=== PATIENT | male | born 1995 | race Caucasian/White ===

== ENCOUNTER 2018-02-09 20:48 | Emergency (ER) ==
[2018-02-09 21:01] VITALS: BP 132/73; TEMP 98.6; BMI 29.2
[2018-02-09] MEDS ORDERED: LIDOCAINE HCL 1% SDV IM STA (21:10)
[2018-02-09] MEDS ORDERED: ROCEPHIN IM STA (21:10)
[2018-02-09] MEDS ORDERED: TORADOL IM STA (21:10)
[2018-02-09] MEDS ORDERED: PHENERGAN 25 MG/ML VIAL IM STA (21:11)
--- NOTE | 2018-02-09 21:49 | CT ---
EXAM: CT sinus without intravenous contrast 02/09/2018. Sagittal and coronal reformatted images obt ained HISTORY: Sinus congestion. COMPARISON: None. FINDINGS: The facial bones appear intact without fracture. Normal anatomic alignment is maintained The paranasal sinuses are normally aerated. There is no acute osseous abnormality. No gross soft tissue abnormality. IMPRESSION: No acute osseous abnormality of the facial bones.
--- NOTE | 2018-02-09 21:54 | CT ---
EXAM: CT Head HISTORY: Headache COMPARISON: None TECHNIQUE: CT head performed without contrast FINDINGS: There is no mass effect, midline shift, or intracranial hemmorhage. Ibarra white differenti ation is preserved. There is no extra-axial collection. The ventricles, sulci, and basal cisterns a re patent and symmetric. There is no depressed calvarial fracture. The mastoid air cells are clear. The visualized paranasal sinuses are clear. IMPRESSION: No acute intracranial abnormality.
--- NOTE | 2018-02-09 22:03 | ED.PDOC ---
General ED Provider: Dr. URIEL OWEN-ER Chief Complaint: Headache Stated Complaint: my ear hurts and i have a cough and my head hurts Time Seen by Physician: 20:55 Mode of Arrival: Walk-In Information Source: Patient Exam Limitations: No limitations Nursing and Triage Documentation Reviewed and Agree: Yes Does patient meet sepsis criteria?: Yes If yes, has appropriate treatment been initiated?: No System Inflammatory Response Syndrome: Not Applicable Sepsis Protocol: For patient's 13 years and over: Temp is 96.8 and below OR 101 and greater Pulse >90 BPM Resp >20/minute Acutely Altered Mental Status Are patient's symptoms suggestive of a new infection, such as: -Pneumonia -Skin, Soft Tissue -Endocarditis -UTI -Bone, Joint Infection -Implantable Device -Acute Abdominal Infection -Wound Infection -Meningitis -Blood Stream Catheter Infection -Unknown EENT Complaint Exam - Ear Complaint/Exam Onset/Duration: 2 days Symptoms Are: Still present Initial Severity: Mild Current Severity: Mild Character: Reports: Sharp pain, Dull pain Aggravating: Reports: None Alleviating: Reports: None Associated Signs and Symptoms: Reports: Hearing loss, Headache, URI symptoms. Denies: Ear trauma, Ear swelling, Discharge, Fever, Bleeding, Sore throat, Foreign body sensation, Rash, Pain to external ear Ear Surgical History: None Vesicles to External Pinna: No Vesicles to Tragus: No TMJ Tenderness: None Mastoid Tenderness: None External Canal: Normal Tympanic Membrane: Erythema, Dullness Differential Diagnoses: Otitis Media, URI Review of Systems - Review Of Systems Constitutional: Reports: No symptoms Eyes: Reports: No symptoms Ears, Nose, Mouth, Throat: Reports: Ear pain Respiratory: Reports: Cough Cardiac: Reports: No symptoms GI: Reports: No symptoms : Reports: No symptoms Musculoskeletal: Reports: No symptoms Skin: Reports: No symptoms Neurological: Reports: Headache Endocrine: Reports: No symptoms Hematologic/Lymphatic: Reports: No symptoms All Other Systems: Reviewed and Negative Past Medical History - Past Medical History Previously Healthy: Yes Endocrine: Reports: Unknown Cardiovascular: Reports: Unknown Respiratory: Reports: Unknown Hematological: Reports: Unknown Gastrointestinal: Reports: Unknown Genitourinary: Reports: Unknown Neuro/Psych: Reports: Unknown Musculoskeletal: Reports: Unknown Cancer: Reports: Unknown - Surgical History General Surgical History: Reports: Unknown - Family History Family History: Reports: Unknown - Social History Smoking Status: Current every day smoker, Light tobacco smoker Hx Substance Use: No Alcohol Screening: Occasionally - Immunizations Tetanus Shot up to Date: Yes Physical Exam - Physical Exam Appearance: Well-appearing, No pain distress, Well-nourished Pain Distress: Mild Eyes: MAURA, EOMI, Conjunctiva clear ENT: Rhinorrhea, Erythema Neck: Supple Respiratory: Airway patent Cardiovascular: RRR GI/: Soft Musculoskeletal: Normal strength Skin: Warm, Dry, Normal color Neurological: Sensation intact Psychiatric: Affect appropriate, Mood appropriate Interpretation - Radiology Interpretation Radiology Interpretation By: Radiologist Radiology Results: Negative Exam Interpreted: CT Scan Re-Evaluation - Re-Evaluation Time of Re-Evaluation: 22:03 Status: Improved (right ear pain and headache has both resolved) Vital Signs Stable: Yes Pain Level: 0 Appearance: NAD Lungs: Clear Skin: Warm and Dry Neuro: Alert and Oriented X3 CV: RRR Critical Care Note - Critical Care Note Total Time (mins): 0 Course - Course Hematology/Chemistry: 02/09/18 21:15 02/09/18 21:15 Orders, Labs, Meds: Lab Review 02/09/18 02/09/18 02/09/18 21:15 21:15 21:15 WBC 8.49 RBC 5.15 Hgb 15.8 Hct 45.6 MCV 88.5 MCH 30.7 MCHC 34.6 RDW Coeff of Reji 12.0 Plt Count 197 Immature Gran % (Auto) 0.2 Neut % (Auto) 56.3 Lymph % (Auto) 32.4 Hinds % (Auto) 5.3 Eos % (Auto) 5.1 Baso % (Auto) 0.7 Immature Gran # (Auto) 0.0 Neut # (Auto) 4.8 Lymph # (Auto) 2.8 Hinds # (Auto) 0.5 Eos # (Auto) 0.4 Baso # (Auto) 0.1 ESR 1 Sodium 140 Potassium 3.7 Chloride 105 Carbon Dioxide 28 Anion Gap 10.7 BUN 10 Creatinine 0.99 Estimated GFR (MDRD) 95.00 BUN/Creatinine Ratio 10.10 Glucose 104 H Calcium 9.4 Total Bilirubin 1.2 AST 15 ALT 19 Alkaline Phosphatase 48 L Total Protein 7.2 Albumin 4.1 Globulin 3.1 Albumin/Globulin Ratio 1.32 Orders Category Date Time Status CBC W/ AUTO DIFF Stat LAB 02/09/18 21:15 Completed COMPREHENSIVE METABOLIC PANEL Stat LAB 02/09/18 21:15 Completed ESR Stat LAB 02/09/18 21:15 Completed Ceftriaxone Sodium [Rocephin] MEDS 02/09/18 21:10 Discontinued 1 gm IM ONCE STA Ketorolac Tromethamine [Toradol] MEDS 02/09/18 21:10 Discontinued 60 mg IM ONCE STA Lidocaine HCl/Pf [Lidocaine HCl 1% Sdv] MEDS 02/09/18 21:10 Discontinued 2.1 ml IM ONCE STA Promethazine HCl [Phenergan 25 mg/ml Vial] MEDS 02/09/18 21:11 Discontinued 25 mg IM ONCE STA CT HEAD W/O CONTRAST Stat RADS 02/09/18 21:[address] SINUSES W/O CONTRAST Stat RADS 02/09/18 21:09 Completed Medications Discontinued Medications Generic Name Dose Route Start Last Admin Trade Name Freq PRN Reason Stop Dose Admin Ceftriaxone Sodium 1 gm 02/09/18 21:10 02/09/18 21:24 Rocephin IM 02/09/18 21:11 1 gm ONCE STA Administration Ketorolac Tromethamine 60 mg 02/09/18 21:10 02/09/18 21:23 Toradol IM 02/09/18 21:11 60 mg ONCE STA Administration Lidocaine HCl 2.1 ml 02/09/18 21:10 02/09/18 21:24 Lidocaine Hcl 1% Sdv IM 02/09/18 21:11 2.1 ml ONCE STA Administration Promethazine HCl 25 mg 02/09/18 21:11 02/09/18 21:23 Phenergan 25 Mg/Ml Vial IM 02/09/18 21:12 25 mg ONCE STA Administration Vital Signs: Temp Pulse Resp BP Pulse Ox 02/09/18 20:55 98.6 F 72 20 132/73 96 Departure - Departure Time of Disposition: 22:03 Disposition: HOME SELF-CARE Discharge Problem: Otitis media Qualifiers: Otitis media type: unspecified Chronicity: acute Qualified Code(s): H66.90 - Otitis media, unspecified, unspecified ear Instructions: Ear Infection (ED) Condition: Good Pt referred to PMD for follow-up: Yes IPMP verified?: No Additional Instructions: ceftin 500mg bid x 7 days---tessalon perles 200mg tid prn cough 30---use motrin for pain--f/u with clinic this week--consider ent consult Allergies/Adverse Reactions: Allergies No Known Allergies Allergy (Unverified 02/09/18 21:11) Home Medications: Ambulatory Orders 1 [No Reported Medications] 02/09/18 Disposition Discussed With: Patient, Family
== END 2018-02-09 22:08 | disposition home or self-care (01) ==
LOC: ED 20:48
DX: H66.90 Otitis media, unspecified, unspecified ear (principal); R51 Headache; R05 Cough; F17.210 Nicotine dependence, cigarettes, uncomplicated
CPT/HCPCS: 36415; 80053; 85025; 85651; 96372; 99283